=== PATIENT | male | born 2005 | race Hispanic/Latino ===

== ENCOUNTER 2024-02-08 21:21 | Emergency (ER) | payer SELFPAY ==
[2024-02-08] MEDS ORDERED: Ondansetron ODT 4 MG TAB ONE (23:22)
[2024-02-08] MEDS ORDERED: Acetaminophen 500 MG TAB ONE (23:22)
[2024-02-08] MEDS ORDERED: Ketorolac Tromethamine 30 MG (1 mL) VIAL ONE (23:22)
[2024-02-09 00:05] LABS: Influenza A by NAA Not Detected (NotDetected); Influenza B by NAA Not Detected (NotDetected); SARS-CoV-2 NAA Rapid Test DETECTED (NotDetected)
== END 2024-02-09 00:10 | disposition home or self-care (01) ==
LOC: ERS 21:21
DX: U07.1 COVID-19 (principal)
CPT/HCPCS: 96372; 99283; J1885; Q0162